=== PATIENT | female | born 1980 | race Caucasian/White ===

== ENCOUNTER 2021-06-23 09:41 | Emergency (ER) | payer MEDICAID ==
[~2021-06-23] VITALS: Ht 160 cm; Wt 56.7 kg
[2021-06-23 10:58] VITALS: BP 136/82
[2021-06-23] MEDS ORDERED: LORA10TA19 PO (12:19)
[2021-06-23] MEDS ORDERED: ERYT5OIN58 OP ×2 (12:19→12:20)
[2021-06-23 19:15] VITALS: BP 136/82
--- NOTE | 2021-06-23 19:15 | NUR ---
Patient discharged with v/s stable. Written and verbal after care instructions given and explained. Patient verbalized understanding. Ambulatory with steady gait. All questions addressed prior to discharge. Advised to follow up with PMD.
== END 2021-06-23 19:15 | disposition home or self-care (01) ==
LOC: MED 09:41
DX: H01.001 Unspecified blepharitis right upper eyelid (principal); Z79.2 Long term (current) use of antibiotics; Z79.899 Other long term (current) drug therapy
CPT/HCPCS: 99283